=== PATIENT | female | born 1990 | race African-American/Black ===

== ENCOUNTER 2017-07-21 18:44 | Emergency (ER) | payer SELFPAY ==
[~2017-07-21] VITALS: Ht 167.6 cm; Wt 69.5 kg
[~2017-07-21 18:44] MED LIST: CLIN150 PO
[2017-07-21 18:45] VITALS: BP 105/61; PULSE 82; RESP 16; TEMP 99.1; O2SAT 99
[2017-07-21 19:58] VITALS: BP 122/66; PULSE 70; RESP 18; O2SAT 97
--- NOTE | 2017-07-21 20:10 | PD ---
HPI Chief Complaint: Abdominal Pain Time Seen by Provider: 19:55 Travel History International Travel<30 days: No Contact w/Intl Traveler<30days: No Traveled to known affect area: No History of Present Illness HPI Patient comes in complaining of left lower quadrant abdominal pain describes as cramping like in nature. Patient states pain feels similar to previous menstrual cycles but denies being on her cycle currently. Patient denies any vaginal discharge, loss change in bowel or bladder, nausea, vomiting, back pain , chest pain, shortness of breath, or fevers. Patient denies doing anything for this. Patient reports symptoms have been intermittent over the past 3 days. Denies any radiation of the pain. Denies anything making the pain worse. PFSH Past Medical History Diminished Hearing: No Immunizations Current: Yes Seizures: Yes (HX OF AT AGE 1 PER PT) ?: Not LMP: 06/12/2017 Menopausal: No : 4 Para: 2 : 1 Past Surgical History Surgical History: No Previous Surgery Gynecologic Surgery: Yes () Social History Alcohol Use: No Tobacco Use: Yes (5 cigarettes per day) Substance Use: No Allergies-Medications (Allergen,Severity, Reaction): Coded Allergies: No Known Allergies (Verified , 07/12/14) Reported Meds & Prescriptions Reported Meds & Active Scripts Active Review of Systems Except as stated in HPI: all other systems reviewed are Neg Physical Exam Narrative GENERAL: Well-developed, well nourished, in no acute distress, and non-ill appearing. SKIN: Focused skin assessment warm and dry. HEAD: Atraumatic. Normocephalic. EYES: Pupils equal and round. EOMI. No scleral icterus. No injection or drainage. ENT: No nasal bleeding or discharge. Mucous membranes pink and moist. NECK: Trachea midline. Supple. No nuclear rigidity. CARDIOVASCULAR: Regular rate and rhythm. No murmur appreciated. RESPIRATORY: No accessory muscle use. No respiratory distress. Clear to auscultation. Breath sounds equal bilaterally. GASTROINTESTINAL: Abdomen soft, nondistended, and no guarding. Hepatic and splenic margins not palpable. Normal bowel sounds 4. No pulsatile mass. No CVA tenderness. Patient reports tenderness to palpation left lower quadrant. GENITOURINARY: Normal external genitalia without lesions or erythema. Vaginal vault without blood, but scant whitish drainage. Cervical os was closed without drainage. No cervical motion tenderness. Uterus nontender and nonenlarged. Bilateral adnexa nontender without masses. Exam was preformed in present engineer technical staffLOUIS Vickers at all times. MUSCULOSKELETAL: No obvious deformities. No clubbing. No cyanosis. No edema. Full range of motion. NEUROLOGICAL: Awake and alert. No obvious cranial nerve deficits. Motor grossly within normal limits. Normal speech. PSYCHIATRIC: Appropriate mood and affect; insight and judgment normal. Data Data Last Documented VS Vital Signs Date Time Temp Pulse Resp B/P (MAP) Pulse Ox O2 Delivery O2 Flow Rate FiO2 07/21/17 19:58 70 18 122/66 (84) 97 Room Air 07/21/17 18:45 99.1 Orders Orders Urinalysis - C+S If Indicated (07/21/17 18:58) Ed Urine Pregnancytest Poc (07/21/17 18:58) Complete Blood Count With Diff (07/21/17 20:07) Comprehensive Metabolic Panel (07/21/17 20:07) Lipase (07/21/17 20:07) Prothrombin Time / Inr (Pt) (07/21/17 20:07) Act Partial Throm Time (Ptt) (07/21/17 20:07) Iv Access Insert/Monitor (07/21/17 20:07) Ecg Monitoring (07/21/17 20:07) Oximetry (07/21/17 20:07) Sodium Chloride 0.9% Flush (Ns Flush) (07/21/17 20:15) Beta Hcg (Quant/Titer) (07/21/17 20:44) Us Pelvis (Ques Preg/Ectopic) (07/21/17 ) Urine Culture (07/21/17 19:10) Gc And Chlamydia Pcr (07/21/17 20:58) Wet Prep Profile (07/21/17 20:58) Labs Laboratory Tests Test 07/21/17 19:10 07/21/17 21:30 07/21/17 22:20 Urine Color YELLOW Urine Turbidity HAZY Urine pH 6.5 Urine Specific [place] 1.025 Urine Protein TRACE mg/dL Urine Glucose (UA) NEG mg/dL Urine Ketones NEG mg/dL Urine Occult Blood NEG Urine Nitrite NEG Urine Bilirubin NEG Urine Urobilinogen 2.0 MG/DL Urine Leukocyte Esterase MOD Urine RBC 2 /hpf Urine WBC 13 /hpf Urine Squamous Epithelial Cells 4 /hpf Urine Amorphous Sediment RARE Urine Mucus FEW /lpf Microscopic Urinalysis Comment CULTURE INDICATED White Blood Count 7.6 TH/MM3 Red Blood Count 4.56 MIL/MM3 Hemoglobin 15.3 GM/DL Hematocrit 44.6 % Mean Corpuscular Volume 97.9 FL Mean Corpuscular Hemoglobin 33.5 PG Mean Corpuscular Hemoglobin Concent 34.2 % Red Cell Distribution Width 13.2 % Platelet Count 235 TH/MM3 Mean Platelet Volume 9.0 FL Neutrophils (%) (Auto) 54.4 % Lymphocytes (%) (Auto) 37.5 % Monocytes (%) (Auto) 6.1 % Eosinophils (%) (Auto) 1.2 % Basophils (%) (Auto) 0.8 % Neutrophils # (Auto) 4.1 TH/MM3 Lymphocytes # (Auto) 2.8 TH/MM3 Monocytes # (Auto) 0.5 TH/MM3 Eosinophils # (Auto) 0.1 TH/MM3 Basophils # (Auto) 0.1 TH/MM3 CBC Comment AUTO DIFF Differential Comment AUTO DIFF CONFIRMED Platelet Estimate NORMAL Platelet Morphology Comment NORMAL Red Cell Morphology Comment NORMAL Prothrombin Time 9.8 SEC Prothromb Time International Ratio 0.9 RATIO Activated Partial Thromboplast Time 25.7 SEC Blood Urea Nitrogen 8 MG/DL Creatinine 0.80 MG/DL Random Glucose 74 MG/DL Total Protein 9.2 GM/DL Albumin 4.8 GM/DL Calcium Level 9.9 MG/DL Alkaline Phosphatase 79 U/L Aspartate Amino Transf (AST/SGOT) 20 U/L Alanine Aminotransferase (ALT/SGPT) 19 U/L Total Bilirubin 0.4 MG/DL Sodium Level 137 MEQ/L Potassium Level 3.7 MEQ/L Chloride Level 102 MEQ/L Carbon Dioxide Level 24.2 MEQ/L Anion Gap 11 MEQ/L Estimat Glomerular Filtration Rate 103 ML/MIN Lipase 246 U/L Human Chorionic Gonadotropin, Quant 567 MIU/ML Clue Cells (Wet Prep) NONE SEEN Vaginal Trichomonas (Wet Prep) NONE SEEN Vaginal Yeast (Wet Prep) NONE SEEN MDM Medical Decision Making Medical Screen Exam Complete: Yes Emergency Medical Condition: Yes Differential Diagnosis UTI, ectopic , ovarian cyst, colitis, renal calculi, endometriosis, other Narrative Course Patient was seen and examined. Initial operatory studies were ordered. IV was established and patient was placed on continuous cardiac monitoring. After a positive urine test patient was reevaluated reports that she is A5. Denies any problems with previous pregnancies. Reports abortions were elective. Previous medical records reviewed show patient is B+ blood type. Patient was signed out to Dr. Nair at the end of my shift pending ultrasound results. Please see her documentation for final diagnosis and disposition. Brett Mensah Jul 21, 2017 20:10
[2017-07-21] MEDS ORDERED: SODIUM CHLORIDE 0.9% FLUSH 10 ML FLUSH IV FLUSH PRN (20:15)
[2017-07-21 20:55] LABS: BLOOD, URINE NEG (NEG); COMMENT (UR) CULTURE INDICATED; CULTURE IF INDICATED CULTURE INDICATED; GLUCOSE,URINE NEG (NEG); KETONE, URINE NEG (NEG); MUCUS URINE FEW /lpf (OCC); NITRITE,URINE NEG (NEG); PH, URINE 6.5 (5.0-8.5); SQUAMOUS EPITHELIAL CELL URINE 4 /hpf (0-5); URINE COLOR YELLOW (YELLW/STRAW)
[2017-07-21 21:39] LABS: AUTOMATED NEUTROPHIL # 4.1 TH/MM3 (1.8-7.7); BASOPHIL # 0.1 TH/MM3 (0-0.2); BASOPHIL % 0.8 % (0.0-2.0); EOSINOPHIL # 0.1 TH/MM3 (0-0.4); EOSINOPHIL % 1.2 % (0.0-4.0); HEMATOCRIT 44.6 % (35.0-46.0); LYMPH % 37.5 % (9.0-44.0); LYMPHOCYTE # 2.8 TH/MM3 (1.0-4.8); MEAN CELL VOLUME 97.9 FL (80.0-100.0); MEAN CORPUSCULAR HEMOGLOBIN 33.5 PG (27.0-34.0); MEAN CORPUSCULAR HGB CONC 34.2 % (32.0-36.0); MONO % 6.1 % (0.0-8.0); NEUT % 54.4 % (16.0-70.0); PLATELET COUNT 235 TH/MM3 (150-450); RED BLOOD COUNT 4.56 MIL/MM3 (4.00-5.30); RED CELL DISTRIBUTION WIDTH 13.2 % (11.6-17.2); WHITE BLOOD COUNT 7.6 TH/MM3 (4.0-11.0)
[2017-07-21 21:42] LABS: HEMO FLAGS AUTO DIFF
[2017-07-21 21:50] LABS: APTT (PATIENT) 25.7 SEC (24.3-30.1); INTERNATIONAL NORMALIZED RATIO 0.9 RATIO; PROTHROMBIN TIME - PATIENT 9.8 SEC (9.8-11.6)
[2017-07-21 22:06] LABS: ANION GAP 11 MEQ/L (5-15); AST (GOT) 20 U/L (15-37); BICARBONATE 24.2 MEQ/L (21.0-32.0); BLOOD UREA NITROGEN 8 MG/DL (7-18); CHLORIDE 102 MEQ/L (98-107); GLOMERULAR FILTRATION RATE 103 ML/MIN (>89); POTASSIUM 3.7 MEQ/L (3.5-5.1); SODIUM (NA) 137 MEQ/L (136-145)
[2017-07-21 22:07] LABS: ALT (GPT) 19 U/L (10-53)
[2017-07-21 22:09] LABS: ALKALINE PHOSPHATASE 79 U/L (45-117); BETA HCG QUANT 567 MIU/ML (0-5); TOTAL BILIRUBIN ADULT 0.4 MG/DL (0.2-1.0)
[2017-07-21 22:16] LABS: PLATELET ESTIMATE SMEAR NORMAL (NORMAL); PLATELET MORPHOLOGY NORMAL (NORMAL); SCAN/DIFF AUTO DIFF CONFIRMED
[2017-07-21] MEDS ORDERED: LIDOCAINE HCL 1% 50 ML VIAL IM ONE (23:30)
[2017-07-21] MEDS ORDERED: cefTRIAXone INJ 1,000 MG in SODIUM CHLORIDE 0.9% INJ 100 ML IV ONE (23:30)
--- NOTE | 2017-07-21 23:38 | RADRPT ---
EXAM DATE/TIME: 07/21/2017 21:19 [place] COMPARISON: No previous studies available for comparison. INDICATIONS : Pelvic pain with . LAB(S): Beta-hC MEDICAL HISTORY : . Seizures. SURGICAL HISTORY : Surgical abortions x 5 elective. ENCOUNTER: Initial ACUITY: 3 days PAIN SCORE: 8/10 LOCATION: Bilateral pelvis MEASUREMENTS: UTERUS: 8.8 x 5.8 x 5.7 cm ENDOMETRIAL STRIPE: 3 mm RIGHT OVARY: 3.6 x 2.2 x 2.5 cm LEFT OVARY: 2.8 x 1.9 x 1.4 cm FREE FLUID: Yes Trace amount adjacent to bilateral ovaries and in posterior cul de sac. CROWN RUMP LENGTH: Non visualized. = WKS DAYS FHR: Non visualized. BPM FINDINGS: Only a transabdominal ultrasound examination was performed. The patient refused a transvaginal ultras ound examination. UTERUS: The myometrium has homogeneous echotexture without mass. No IUP is seen. RIGHT OVARY: Ovary contains no mass or significant cystic lesion. LEFT OVARY: Ovary contains no mass or significant cystic lesion. MISCELLANEOUS: There is a small amount of free fluid. CONCLUSION: 1. No IUP is seen on this transabdominal ultrasound examination. 2. There is a small amount of free fluid seen in the pelvis. Kannan Mayo MD on July 21, 2017 at 23:34 Board Certified Radiologist. This report was verified electronically.
[2017-07-22] MEDS ORDERED: MACR100C2 PO (00:05)
--- NOTE | 2017-07-22 00:08 | PD ---
Data Data Last Documented VS Vital Signs Date Time Temp Pulse Resp B/P (MAP) Pulse Ox O2 Delivery O2 Flow Rate FiO2 07/21/17 19:58 70 18 122/66 (84) 97 Room Air 07/21/17 18:45 99.1 Orders Orders Urinalysis - C+S If Indicated (07/21/17 18:58) Ed Urine Pregnancytest Poc (07/21/17 18:58) Complete Blood Count With Diff (07/21/17 20:07) Comprehensive Metabolic Panel (07/21/17 20:07) Lipase (07/21/17 20:07) Prothrombin Time / Inr (Pt) (07/21/17 20:07) Act Partial Throm Time (Ptt) (07/21/17 20:07) Iv Access Insert/Monitor (07/21/17 20:07) Ecg Monitoring (07/21/17 20:07) Oximetry (07/21/17 20:07) Sodium Chloride 0.9% Flush (Ns Flush) (07/21/17 20:15) Beta Hcg (Quant/Titer) (07/21/17 20:44) Us Pelvis (Ques Preg/Ectopic) (07/21/17 ) Urine Culture (07/21/17 19:10) Gc And Chlamydia Pcr (07/21/17 20:58) Wet Prep Profile (07/21/17 20:58) Ceftriaxone Inj (Rocephin Inj) (07/21/17 23:30) Lidocaine 1% Inj (50 Ml) (Xylocaine 1% I (07/21/17 23:30) Ceftriaxone Inj (Rocephin Inj) (07/21/17 23:30) Labs Laboratory Tests Test 07/21/17 19:10 07/21/17 21:30 07/21/17 22:20 Urine Color YELLOW Urine Turbidity HAZY Urine pH 6.5 Urine Specific [place] 1.025 Urine Protein TRACE mg/dL Urine Glucose (UA) NEG mg/dL Urine Ketones NEG mg/dL Urine Occult Blood NEG Urine Nitrite NEG Urine Bilirubin NEG Urine Urobilinogen 2.0 MG/DL Urine Leukocyte Esterase MOD Urine RBC 2 /hpf Urine WBC 13 /hpf Urine Squamous Epithelial Cells 4 /hpf Urine Amorphous Sediment RARE Urine Mucus FEW /lpf Microscopic Urinalysis Comment CULTURE INDICATED White Blood Count 7.6 TH/MM3 Red Blood Count 4.56 MIL/MM3 Hemoglobin 15.3 GM/DL Hematocrit 44.6 % Mean Corpuscular Volume 97.9 FL Mean Corpuscular Hemoglobin 33.5 PG Mean Corpuscular Hemoglobin Concent 34.2 % Red Cell Distribution Width 13.2 % Platelet Count 235 TH/MM3 Mean Platelet Volume 9.0 FL Neutrophils (%) (Auto) 54.4 % Lymphocytes (%) (Auto) 37.5 % Monocytes (%) (Auto) 6.1 % Eosinophils (%) (Auto) 1.2 % Basophils (%) (Auto) 0.8 % Neutrophils # (Auto) 4.1 TH/MM3 Lymphocytes # (Auto) 2.8 TH/MM3 Monocytes # (Auto) 0.5 TH/MM3 Eosinophils # (Auto) 0.1 TH/MM3 Basophils # (Auto) 0.1 TH/MM3 CBC Comment AUTO DIFF Differential Comment AUTO DIFF CONFIRMED Platelet Estimate NORMAL Platelet Morphology Comment NORMAL Red Cell Morphology Comment NORMAL Prothrombin Time 9.8 SEC Prothromb Time International Ratio 0.9 RATIO Activated Partial Thromboplast Time 25.7 SEC Blood Urea Nitrogen 8 MG/DL Creatinine 0.80 MG/DL Random Glucose 74 MG/DL Total Protein 9.2 GM/DL Albumin 4.8 GM/DL Calcium Level 9.9 MG/DL Alkaline Phosphatase 79 U/L Aspartate Amino Transf (AST/SGOT) 20 U/L Alanine Aminotransferase (ALT/SGPT) 19 U/L Total Bilirubin 0.4 MG/DL Sodium Level 137 MEQ/L Potassium Level 3.7 MEQ/L Chloride Level 102 MEQ/L Carbon Dioxide Level 24.2 MEQ/L Anion Gap 11 MEQ/L Estimat Glomerular Filtration Rate 103 ML/MIN Lipase 246 U/L Human Chorionic Gonadotropin, Quant 567 MIU/ML Clue Cells (Wet Prep) NONE SEEN Vaginal Trichomonas (Wet Prep) NONE SEEN Vaginal Yeast (Wet Prep) NONE SEEN MDM Medical Record Reviewed: Yes Supervised Visit with MIREILLE: Yes Interpretation(s) Vital Signs Date Time Temp Pulse Resp B/P (MAP) Pulse Ox O2 Delivery O2 Flow Rate FiO2 07/21/17 19:58 70 18 122/66 (84) 97 Room Air 07/21/17 18:45 99.1 82 16 105/61 (76) 99 Room Air Laboratory Tests Test 07/21/17 19:10 07/21/17 21:30 07/21/17 22:20 Urine Color YELLOW (YELLW/STRAW) Urine Turbidity HAZY (CLEAR) Urine pH 6.5 (5.0-8.5) Urine Specific [place] 1.025 (1.002-1.035) Urine Protein TRACE mg/dL (NEG-TRACE) Urine Glucose (UA) NEG mg/dL (NEG) Urine Ketones NEG mg/dL (NEG) Urine Occult Blood NEG (NEG) Urine Nitrite NEG (NEG) Urine Bilirubin NEG (NEG) Urine Urobilinogen 2.0 MG/DL (LESS THAN Urine Leukocyte Esterase MOD (NEG) Urine RBC 2 /hpf (0-3) Urine WBC 13 /hpf (0-5) Urine Squamous Epithelial Cells 4 /hpf (0-5) Urine Amorphous Sediment RARE Urine Mucus FEW /lpf (OCC) Microscopic Urinalysis Comment CULTURE INDICATED White Blood Count 7.6 TH/MM3 (4.0-11.0) Red Blood Count 4.56 MIL/MM3 (4.00-5.30) Hemoglobin 15.3 GM/DL (11.6-15.3) Hematocrit 44.6 % (35.0-46.0) Mean Corpuscular Volume 97.9 FL (80.0-100.0) Mean Corpuscular Hemoglobin 33.5 PG (27.0-34.0) Mean Corpuscular Hemoglobin Concent 34.2 % (32.0-36.0) Red Cell Distribution Width 13.2 % (11.6-17.2) Platelet Count 235 TH/MM3 (150-450) Mean Platelet Volume 9.0 FL (7.0-11.0) Neutrophils (%) (Auto) 54.4 % (16.0-70.0) Lymphocytes (%) (Auto) 37.5 % (9.0-44.0) Monocytes (%) (Auto) 6.1 % (0.0-8.0) Eosinophils (%) (Auto) 1.2 % (0.0-4.0) Basophils (%) (Auto) 0.8 % (0.0-2.0) Neutrophils # (Auto) 4.1 TH/MM3 (1.8-7.7) Lymphocytes # (Auto) 2.8 TH/MM3 (1.0-4.8) Monocytes # (Auto) 0.5 TH/MM3 (0-0.9) Eosinophils # (Auto) 0.1 TH/MM3 (0-0.4) Basophils # (Auto) 0.1 TH/MM3 (0-0.2) CBC Comment AUTO DIFF Differential Comment AUTO DIFF CONFIRMED Platelet Estimate NORMAL (NORMAL) Platelet Morphology Comment NORMAL (NORMAL) Red Cell Morphology Comment NORMAL (NORMAL) Prothrombin Time 9.8 SEC (9.8-11.6) Prothromb Time International Ratio 0.9 RATIO Activated Partial Thromboplast Time 25.7 SEC (24.3-30.1) Blood Urea Nitrogen 8 MG/DL (7-18) Creatinine 0.80 MG/DL (0.50-1.00) Random Glucose 74 MG/DL (74-106) Total Protein 9.2 GM/DL (6.4-8.2) Albumin 4.8 GM/DL (3.4-5.0) Calcium Level 9.9 MG/DL (8.5-10.1) Alkaline Phosphatase 79 U/L (45-117) Aspartate Amino Transf (AST/SGOT) 20 U/L (15-37) Alanine Aminotransferase (ALT/SGPT) 19 U/L (10-53) Total Bilirubin 0.4 MG/DL (0.2-1.0) Sodium Level 137 MEQ/L (136-145) Potassium Level 3.7 MEQ/L (3.5-5.1) Chloride Level 102 MEQ/L (98-107) Carbon Dioxide Level 24.2 MEQ/L (21.0-32.0) Anion Gap 11 MEQ/L (5-15) Estimat Glomerular Filtration Rate 103 ML/MIN (>89) Lipase 246 U/L (73-393) Human Chorionic Gonadotropin, Quant 567 MIU/ML (0-5) Clue Cells (Wet Prep) NONE SEEN (NONE) Vaginal Trichomonas (Wet Prep) NONE SEEN (NONE) Vaginal Yeast (Wet Prep) NONE SEEN (NONE) Pelvic ultrasound shows no IUP, small amount of free fluid in the pelvis Differential Diagnosis Differential includes cervicitis, ectopic , UTI, threatened miscarriage Narrative Course I, Dr. Nair, have reviewed the advance practice practitioner's documentation and am in agreement, met with the patient face to face, made the diagnosis, and the medical decision making was done by me. *My assessment and Findings: Patient is a 27-year-old female who presents to emergency room with complaints of left lower quadrant abdominal pain. An IV line was established, lab work was obtained. Patient's hCG Quant was found to be 567. Patient was told that she is at this time. No vaginal discharge or bleeding, a pelvic exam was performed, GC is pending. Urine is positive for moderate leuk esterase, 13 white blood cells, culture was sent. Was given a dose of IV Rocephin while in the emergency room, a Macrobid prescription to go home with. Patient will follow-up with all cultures from today. A copy of patient's ultrasound report as well as labwork was given to her discharge, discussed need for pelvic rest until she is seen and cleared by DIALYSIS EQUIPMENT TECHNICIAN. Understands that today I cannot rule out ectopic , I reviewed signs and symptoms of ectopic with her. Patient will follow-up with her DIALYSIS EQUIPMENT TECHNICIAN as soon as possible, she will return to emergency as needed. She is given instructions on threatened miscarriage versus ectopic signs and symptoms. Diagnosis Primary Impression: Qualified Codes: Z34.90 - Encounter for supervision of normal , unspecified, unspecified trimester Additional Impression: Threatened miscarriage in early Patient Instructions: General Instructions Additional Instruction: Please provide patient with a copy of her studies and lab work at discharge Please follow-up with your DIALYSIS EQUIPMENT TECHNICIAN as soon as possible Pelvic rest until you are seen and cleared by your DIALYSIS EQUIPMENT TECHNICIAN Return to the emergency room or tree farmer if you have return of pain as ectopic could not be ruled out today, you will need a repeat pelvic ultrasound as well as repeat blood work Please follow-up with all cultures from today Return to the emergency room as needed Scripts Nitrofurantoin Monohydrate Macrocrystals (Macrobid) 100 Mg Cap 100 MG PO BID for Infection for 10 Days, #20 CAP 0 Refills Prov: Viviane Nair DO 07/22/17 Disposition: 01 DISCHARGE HOME Viviane Nair DO Jul 22, 2017 00:08
[2017-07-22 01:34] LABS: CHLAMYDIA PCR NOT DETECTED (NOT DETECT); NEISSERIA PCR NOT DETECTED (NOT DETECT)
== END 2017-07-22 00:24 | disposition home or self-care (01) ==
LOC: NEPC 18:44
DX: O20.0 Threatened abortion (principal); F17.210 Nicotine dependence, cigarettes, uncomplicated
CPT/HCPCS: 76700; 80053; 81001; 83690; 84702; 84703; 85025; 85610; 85730; 87086; 87210; 87491; 87591; 96372; 99285; J0696

== ENCOUNTER → 2017-12-22 | Outpatient (CLI) | payer MEDICAID ==
[~2017-12-22] MED LIST changes: -CLIN150 PO; +MACR100C2 PO
== END ==
LOC: HPND 10:04
PROVIDERS: ATTEND Obstetrics & Gynecology
DX: O43.192 Other malformation of placenta, second trimester (principal)
CPT/HCPCS: 76811; 76825; 76827; 93325

== ENCOUNTER → 2018-02-03 | Outpatient (CLI) | payer MEDICAID | LOC: HPND 08:41 | PROVIDERS: ATTEND Obstetrics & Gynecology | DX: O43.193 Other malformation of placenta, third trimester (principal) | CPT/HCPCS: 76816 ==